=== PATIENT | female | born 1965 | race Caucasian/White ===

== ENCOUNTER 2018-09-03 10:21 | Emergency (ER) | payer BC ==
--- NOTE | 2018-09-03 10:42 | Emergency Department Record ---
History of Present Illness - General Chief Complaint: Abdominal Pain Stated Complaint: ABDOMINAL PAIN Time Seen by Provider: 09/03/18 10:39 Source: Patient Mode of Arrival: Ambulatory Limitations: No limitations - History of Present Illness Initial Comments: The patient is here due to L flank pain off and on for 5 days. She has had mild dysuria and dark urine during that time. The patient denies any fever, vomiting , R sided AP or diarrhea. The pain did resolve initially after a day but returned 2 days ago. MD Complaint: Flank pain Onset/Timin -: Days(s) Location: L Flank Severity scale (1-10): 4 Quality: Sharp Improves With: Nothing Worsens With: Movement Associated Symptoms: Chills, Dysuria, Fever, Nausea, Vomiting - Related Data Home Medications Medication Instructions Recorded Confirmed Last Taken Calcium Carbonate [Calcium] 1,200 mg PO DAILY 09/03/18 09/03/18 09/02/18 Levothyroxine Sodium [Synthroid] 88 mcg PO DAILY 09/03/18 09/03/18 09/03/18 Multivitamin [Multi-Vitamin Daily] 1 each PO DAILY 09/03/18 09/03/18 09/02/18 Previous Rx's Medication Instructions Recorded Hydrocodone/Acetaminophen [[place] 1 - 2 each PO .EVERY 4-6 HRS PRN 09/03/18 5-325 Tablet] #15 tablet Tamsulosin HCl [Flomax] 0.4 mg PO DAILY #7 cap.er.24h 09/03/18 Allergies Allergy/AdvReac Type Severity Reaction Status Date / Time celecoxib [From Celebrex] Allergy RASH Verified 09/03/18 10:39 erythromycin base Allergy RASH Verified 09/03/18 10:39 Travel Screening - Travel/Exposure Within Last 30 Days Have you traveled within the last 30 days?: No - Travel/Exposure Within Last Year Have you traveled outside the [place] in the last year?: No - Additonal Travel Details Have you been exposed to anyone with a communicable illness?: No - Travel Symptoms Symptom Screening: Vomiting Review of Systems Constitutional: Denies: Chills, Fever Eyes: Denies: Eye discharge ENT: Denies: Congestion Respiratory: Denies: Cough Cardiovascular: Denies: Arrhythmia Endocrine: Denies: Fatigue Gastrointestinal: Denies: Abdominal pain Genitourinary: Denies: Dysuria Musculoskeletal: Denies: Arthralgia Skin: Denies: Bruising, Rash Past Medical History - SOCIAL HISTORY Smoking Status: Current every day smoker Alcohol Use: Occasional Drug Use: Occasional Drug Use Detail:: Marijuana - RESPIRATORY Hx Respiratory Disorders: No - CARDIOVASCULAR Hx Cardio Disorders: No Comment:: murmer - NEURO Hx Neuro Disorders: No - GI Hx GI Disorders: Yes Hx Irritable Bowel: Yes Hx of Polyps: Yes - Hx Genitourinary Disorders: Yes Hx UTI: Yes - ENDOCRINE Hx Endocrine Disorders: Yes Hx Diabetes: No Hx Thyroid Disease: Yes (hypo) - MUSCULOSKELETAL Hx Musculoskeletal Disorders: Yes Comment:: osteopenia - PSYCH Hx Psych Problems: No - HEMATOLOGY/ONCOLOGY Hx Hematology/Oncology Disorders: No Family Medical History Any Significant Family History?: No Hx Cancer: Brother/Sister Hx Diabetes: Mother Hx Heart Disease: Mother Hx Kidney Disease: Brother/Sister Physical Exam - General General Appearance: Alert, Oriented x3, Cooperative, No acute distress - Head Head exam: Atraumatic, Normocephalic, Normal inspection - Eye Eye exam: Normal appearance, PERRL - ENT Throat exam: Normal inspection. negative: Tonsillar erythema, Tonsillar exudate - Neck Neck exam: Normal inspection, Full ROM. negative: Tenderness - Respiratory Respiratory exam: Normal lung sounds bilaterally. negative: Respiratory distress - Cardiovascular Cardiovascular Exam: Regular rate, Normal rhythm, Normal heart sounds - GI/Abdominal GI/Abdominal exam: Soft, Tenderness (There is mild LUQ tenderness.). negative: Guarding, Pulsatile mass, Rebound, Rigid - Extremities Extremities exam: Normal inspection, Full ROM, Normal capillary refill. negative: Tenderness - Neurological Neurological exam: Alert. negative: Motor sensory deficit Course Vital Signs 09/03/18 10:26 Temperature 98.4 F Pulse Rate 65 Respiratory 18 Rate Blood Pressure 177/90 Pulse Ox 100 - Reevaluation(s) Reevaluation #1: The patient is doing better at this time with the Toradol. I did discuss the need for F/U with Dr. Veliz later this week due to the kidney stone. She is to return to the ER for any worsening symptoms. 09/03/18 11:52 Medical Decision Making - Data Complexity MDM Data: Labs Ordered and/or Reviewed, X-Ray Ordered and/or Reviewed - Lab Data Result diagrams: 09/03/18 10:58 09/03/18 10:58 - Radiology Data Radiology results: Report reviewed (CT: 2mm distal L ureter stone with mild hydro.) Disposition Disposition: Discharge Clinical Impression: Ureteral stone with hydronephrosis Disposition: Home, Self-Care Condition: (2) Stable Instructions: Ureteral Stones (ED) Additional Instructions: Please drink plenty of fluids and take Advil or Motrin for pain. Please take the [place] if needed and use Flomax as directed. Please see Dr. Veliz later this week. Return to the ER for any worsening pain, fever, or vomiting. Prescriptions: Hydrocodone/Acetaminophen [[place] 5-325 Tablet] 1 - 2 each PO .EVERY 4-6 HRS PRN #15 tablet PRN Reason: Pain Tamsulosin HCl [Flomax] 0.4 mg PO DAILY #7 cap.er.24h Referrals: JORGE L VELIZ M.D. [MEDICAL DOCTOR] - Forms: Patient Portal Access Time of Disposition: 11:56 Quality - Quality Measures Quality Measures: N/A - Blood Pressure Screening View Details: Yes Does Patient Have Any of the Following: No Blood Pressure Classification: Hypertensive Reading Systolic Measurement: 177 Diastolic Measurement: 90 Screening for High Blood Pressure: < First Hypertensive BP, F/U Documented > [ [id number]] First Hypertensive Follow-up Interventions: Referral to alternative/primary care provider.
[2018-09-03] MEDS ORDERED: 0.9 % SODIUM CHLORIDE 1,000 ML BAG IV ONE (10:47)
[2018-09-03 11:02] LABS: BASO % 0.4 % (0-6); GRAN % 64.1 % (47-80); HEMATOCRIT 42.8 % (35.0-47.0); HEMOGLOBIN 14.1 gm/dl (11.6-16.0); LYMPH % 26.9 % (16-45); MEAN CELL VOLUME 90.5 fl (81-97); MEAN CORPUSCULAR HEMOGLOBIN 29.8 pg (27-33); MEAN CORPUSCULAR HGB CONC 32.9 g/dl (32-36); MEAN PLATELET VOLUME 10.1 fl (7.4-10.4); MONO % 8.6 % (0-9); PLATELET COUNT 255 K/uL (130-400); RED BLOOD COUNT 4.73 M/uL (3.80-5.40); WHITE BLOOD COUNT W/O DIFF 7.3 K/uL (4.2-12.2)
[2018-09-03 11:15] LABS: BLOOD UREA NITROGEN 13 mg/dL (6-20); CREATININE 0.9 mg/dL (0.5-0.9); EST GLOMERULAR FILTRATION RATE > 60 mL/min
[2018-09-03 11:18] LABS: GLUCOSE,RANDOM 119 mg/dL (74-109)
[2018-09-03] MEDS ORDERED: KETOROLAC 30 MG/ML VIAL IVP ONE (11:19)
[2018-09-03 11:30] LABS: URINE APPEARANCE CLEAR; URINE BILIRUBIN NEGATIVE (NEGATIVE); URINE BLOOD MODERATE (NEGATIVE); URINE COLOR YELLOW; URINE GLUCOSE (UA) NEGATIVE (NEGATIVE); URINE KETONE NEGATIVE (NEGATIVE); URINE LEUKOCYTE ESTERASE NEGATIVE (NEGATIVE); URINE NITRITE NEGATIVE (NEGATIVE); URINE PROTEIN NEGATIVE (NEGATIVE); URINE UROBILINOGEN 0.2 E.U./dL (0.20 - 1.00)
[2018-09-03 11:36] LABS: URINE WBC NONE SEEN (0-2/hpf)
--- NOTE | 2018-09-04 10:32 | CT SCAN REPORT ---
EXAM: CT OF THE ABDOMEN AND PELVIS HISTORY: LEFT SIDED ABDOMINAL PAIN, DYSURIA. TECHNIQUE: Noncontrast CT of the abdomen and pelvis was obtained. Comparison: None. FINDINGS: The lung bases are clear. Unremarkable noncontrast CT appearance of the liver, gallbladder, spleen, adrenal glands, and pancreas. Mild left hydronephrosis with a 2 mm calculus in the distal left ureter. There is also question of an additional 2 mm calculus versus external vascular phlebolith along the posterior inferior urinary bladder. A punctate 1 mm calculus is seen within the left upper renal pole. No right hydronephrosis or calculi. Sigmoid colon diverticulosis without evidence of acute diverticulitis. No focal colonic thickening or inflammatory changes. The appendix is normal. The stomach and small bowel are nondilated. No free air or free fluid. The abdominal aorta is calcified, nondilated. Degenerative changes at L5-S1 with disk height loss and bilateral facet arthrosis. No definite acute osseous findings. IMPRESSION: 1. 2 MM CALCULUS IN THE DISTAL LEFT URETER RESULTING IN MILD LEFT HYDRONEPHROSIS. THERE IS AN ADDITIONAL PUNCTATE 1 MM NONOBSTRUCTING LEFT INTRARENAL CALCULUS. 2. FOCAL 2 MM CALCIFICATION ALONG THE POSTERIOR INFERIOR URINARY BLADDER WALL MAY REPRESENT A CALCULUS WITHIN THE BLADDER LUMEN VERSUS AN ADJACENT EXTERNAL VASCULAR PHLEBOLITH. 3. SIGMOID COLON DIVERTICULOSIS WITHOUT EVIDENCE OF ACUTE DIVERTICULITIS. JOB NUMBER: [id number] [facility]
== END 2018-09-03 12:10 | disposition home or self-care (01) ==
LOC: ER 10:21
DX: N13.2 Hydronephrosis with renal and ureteral calculous obstruction (principal); F17.210 Nicotine dependence, cigarettes, uncomplicated
CPT/HCPCS: 74176; 80048; 81001; 85025; 96361; 96374; 99284; J1885; J7030